=== PATIENT | female | born 1980 | race Caucasian/White ===

== ENCOUNTER 2017-02-12 14:35 | Emergency (ER) | payer MEDICAID ==
[~2017-02-12] VITALS: Ht 157.5 cm; Wt 57.5 kg
[2017-02-12 14:45] VITALS: Ht 157.5 cm; Wt 57.5 kg
[2017-02-12] MEDS ORDERED: KETOROLAC 30 MG INJ IM STA (15:27)
[2017-02-12] MEDS ORDERED: ONDANSETRON (ODT) 4 MG TAB ODT STA (15:27)
--- NOTE | 2017-02-12 16:11 | RADRPT ---
PROCEDURE: CT brain without contrast CLINICAL INDICATION: Severe headaches TECHNIQUE: CT of the brain without contrast was performed on a multidetector CT scanner, with multi planar reformats. One or more of the following dose reduction techniques were used: Automated expos ure control, adjustment in mA and / or kV according to patient size, use of iterative reconstructive technique. CTDIvol = 45 mGy; DLP = 630 mGy-cm. COMPARISON: None available FINDINGS: No acute intracranial hemorrhage is identified. No extra-axial fluid collection is seen. There is no mass effect. No midline shift is identified. Ventricles and sulci are within normal limits for size and configuration. The density of the brain is within normal limits. Braxton-white differentiation is preserved. Osseous structures are unremarkable. Mastoid air cells and imaged paranasal sinuses grossly clear. IMPRESSION: Unremarkable noncontrast CT of the brain. RPTAT: VV .Dg Lamas MD, Date Time Electronically viewed and signed by .Dg Lamas MD, MD on 02/12/2017 16:10 .O/
[2017-02-12] MEDS ORDERED: HYDROCODONE/APAP (10/325) TAB PO ONE (16:30)
[2017-02-12] MEDS ORDERED: IBUP-1542 PO (17:02)
[2017-02-12] MEDS ORDERED: HYDR-902 PO (17:02)
[2017-02-12 17:14] VITALS: BP 108/71; PULSE 76; RESP 16
--- NOTE | 2017-02-12 18:56 | ERD ---
ER Documentation Chief Complaint Date/Time DATE: 02/12/17 TIME: 18:55 Chief Complaint Pt with Hauser, visual disturbances and "not making sense". HPI Patient is a 36-year-old female with migraine headaches who presents with headache. The patient has pain and pressure in the left side of her head. She says that it moves back and forth between the eyes. It started at 11 AM the pain was gradual in onset. It is gotten worse. It feels like her migraine. She has had no treatment as of yet. She says "I was not making sense". She has no fevers. She does not currently have a primary doctor. Upon review of old medical records this is the patient's fourth visit to the ER since 2007. ROS All systems reviewed and are negative except as per history of present illness. Medications Home Meds Active Scripts Hydrocodone/Acetaminophen (Douglas 10-325 Tablet) 1 Each Tablet, 1 TAB PO Q6H Y for PAIN, #7 TAB Prov:GILBERT LEONARDO MD 02/12/17 Ibuprofen* (Motrin*) 600 Mg Tab, 600 MG PO Q6H Y for PAIN AND OR ELEVATED TEMP, #30 TAB Prov:GILBERT LEONARDO MD 02/12/17 Allergies Allergies: Coded Allergies: No Known Drug Allergies (Verified Allergy, Mild, 05/24/14) PMhx/Soc Medical and Surgical Hx: pt denies Medical Hx, pt denies Surgical Hx Hx Alcohol Use: No Hx Substance Use: No Hx Tobacco Use: No FmHx Family History: No diabetes Physical Exam Vitals Vital Signs Date Time Temp Pulse Resp B/P Pulse Ox O2 Delivery O2 Flow Rate FiO2 02/12/17 17:14 76 16 108/71 98 Room Air 02/12/17 14:45 97.9 71 20 134/85 100 Physical Exam Const: Mild distress secondary to pain Head: Atraumatic Eyes: Normal Conjunctiva ENT: Normal External Ears, Nose and Mouth. Neck: Full range of motion..~ No meningismus. Resp: Clear to auscultation bilaterally Cardio: Regular rate and rhythm, no murmurs Abd: Soft, non tender, non distended. Normal bowel sounds Skin: No petechiae or rashes Back: No midline or flank tenderness Ext: No cyanosis, or edema Neur: Awake and alert, cranial nerves II through XII intact, strength is 5 out of 5 in all 4 extremities, gait is normal no slurred speech Psych: Normal Mood and Affect Results 24 hrs Current Medications Medications (Trade) Dose Ordered Sig/Luis Route PRN Reason Start Time Stop Time Status Last Admin Dose Admin Ketorolac Tromethamine (Toradol) 30 mg ONCE STAT IM 02/12/17 15:27 02/12/17 15:28 DC 02/12/17 15:39 Ondansetron HCl (Zofran Odt) 4 mg ONCE STAT ODT 02/12/17 15:27 02/12/17 15:28 DC 02/12/17 15:39 Acetaminophen/ Hydrocodone Bitart (Douglas (10)) 1 tab ONCE ONCE PO 02/12/17 16:30 02/12/17 16:31 DC 02/12/17 16:12 Procedures/MDM CT brain negative per radiology. Patient is a 36-year-old female with migraine headache who presents with headache. Her symptoms are consistent with migraine headaches especially with pressure behind the left eye. The patient was given Toradol and Zofran as well as Douglas. She is better but her pain is not completely relieved. CT brain did not show any sign of intracranial hemorrhage or mass. At this point I doubt intracranial hemorrhage, intracranial mass, or meningitis. I doubt stroke. I believe outpatient management is appropriate. She will need close follow-up however a primary doctor and I will give her the list of local clinics in the area. She will be given a short course of Douglas and ibuprofen for pain. Departure Diagnosis: Primary Impression: Headache Headache type: unspecified Headache chronicity pattern: acute headache Intractability: not intractable Qualified Code: R51 - Acute nonintractable headache, unspecified headache type Condition: Fair Patient Instructions: Self-Care for Headaches Referrals: COMMUNITY CLINICS YOU HAVE RECEIVED A MEDICAL SCREENING EXAM AND THE RESULTS INDICATE THAT YOU DO NOT HAVE A CONDITION THAT REQUIRES URGENT TREATMENT IN THE EMERGENCY DEPARTMENT. FURTHER EVALUATION AND TREATMENT OF YOUR CONDITION CAN WAIT UNTIL YOU ARE SEEN IN YOUR DOCTORS OFFICE WITHIN THE NEXT 1-2 DAYS. IT IS YOUR RESPONSIBILITY TO MAKE AN APPOINTMENT FOR FOLOW-UP CARE. IF YOU HAVE A PRIMARY DOCTOR --you should call your primary doctor and schedule an appointment IF YOU DO NOT HAVE A PRIMARY DOCTOR YOU CAN CALL OUR PHYSICIAN REFERRAL HOTLINE AT IF YOU CAN NOT AFFORD TO SEE A PHYSICIAN YOU CAN CHOSE FROM THE FOLLOWING COMMUNITY CLINICS [facility] [address] [facility] [address] [facility] [facility] [place] [address] [facility]. [facility] [address] [facility]. [facility] [address] [facility] [facility] [address] Additional Instructions: Call your primary care doctor TOMORROW for an appointment during the next 1-2 days.See the doctor sooner or return here if your condition worsens before your appointment time. GILBERT LEONARDO MD Feb 12, 2017 18:56
== END 2017-02-12 15:15 | disposition home or self-care (01) ==
LOC: FTE 14:35
DX: R51 Headache (principal)
CPT/HCPCS: 70450; 96372; J1885; Z7502; Z7610